=== PATIENT | male | born 1945 ===

== ENCOUNTER 2016-10-10 08:35 | Day surgery (SDC) | payer MEDICARE, BC ==
[2015-12-28 04:40] VITALS: PULSE 72
[2016-10-10 09:00] VITALS: BMI 22.8
[2016-10-10 09:43] LABS: BASO # 0.1 K/uL (0.0-0.2); BASO % 0.5 % (0.0-2.0); EOS # 0.1 K/uL (0.0-0.7); EOS % 0.6 % (0.0-4.0); HEMATOCRIT 43.8 % (35.0-51.0); LYMPH # 0.9 K/uL (1.0-4.3); LYMPH % 7.3 % (20.0-40.0); MEAN CELL VOLUME 85.4 fL (80.0-94.0); MEAN CORPUSCULAR HEMOGLOBIN 27.1 pg (27.0-31.0); MEAN CORPUSCULAR HGB CONC 31.7 g/dL (33.0-37.0); MEAN PLATELET VOLUME 11.4 fL (7.2-11.7); MONO # 0.8 K/uL (0.0-0.8); MONO % 7.1 % (0.0-10.0); WHITE BLOOD COUNT 11.7 K/uL (4.8-10.8)
[2016-10-10 09:44] LABS: POTASSIUM 4.3 mmol/L (3.6-5.2)
[2016-10-10 09:45] LABS: PLATELET COUNT 106 K/uL (130-400)
[2016-10-10 09:48] LABS: CALCIUM 9.2 mg/dl (8.6-10.4)
[2016-10-10 10:07] LABS: BASOPHIL 1 % (0-2); EOSINOPHIL 1 % (0-4); NEUTROPHIL 70 % (50-75); TOTAL CELLS COUNTED 100
[2016-10-10 10:09] LABS: LARGE PLATELETS PRESENT
[2016-10-10 10:42] VITALS: RESP 18
[2016-10-10] MEDS ORDERED: Lidocaine 2% Inj (20ml) ONE (11:43)
[2016-10-10] MEDS ORDERED: Iodixanol 320 MG/ML 200 ML BOTTLE IV ONE (11:43)
[2016-10-10] MEDS ORDERED: Midazolam 2 MG/2 ML VIAL ONE (11:54)
[2016-10-10] MEDS ORDERED: Propofol 10 mg/ml Inj (20 ML) ONE (12:51)
[2016-10-10] MEDS ORDERED: Nitroglycerin 50mg in D5W 250 ML IV ONE (12:52)
--- NOTE | 2016-10-10 13:27 | CARD ---
APPROVED REPORT EKG Measurement Heart [id number] <Conclusion> Sinus tachycardia Possible Left atrial enlargement Right bundle branch block Left posterior fascicular block Bifascicular block Inferior infarct, age undetermined Anteroseptal infarct, age undetermined Abnormal ECG
--- NOTE | 2016-10-10 13:33 | PCM.SURG1 ---
Surgeon's Initial Post Op Note - Surgeon's Notes Surgeon: blanka Shredding Machine Operator: 0 Type of Anesthesia: IV Sedation Anesthesia Administered By: mino Pre-Operative Diagnosis: pvd. rest pain right foot Operative Findings: 60% perianastomotic stenosis to dorsalis pedis on right. 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 balloon angioplasty of dorsalis pedis artery. pressure closure left groin Post-Operative Diagnosis: same Operation Performed: aotofrmoral angiogram via left groin with selective catherization of right femoral artery. balloon angioplasty 2x40 of dp/ gsv anastomosis Specimen/Specimens Removed: 0 Estimated Blood Loss: EBL {In ML}: 25 Blood Products Given: N/A Drains Used: No Drains Post-Op Condition: Good Date of Surgery/Procedure: 10/10/16 Time of Surgery/Procedure: 13:34
--- NOTE | 2016-10-10 14:09 | VAS ---
DATE: 10/10/2016 PREOPERATIVE DIAGNOSES: Rest pain right foot, previous right superficial femoral artery stent, previ ous right popliteal to dorsalis pedis bypass. SURGEON: Forrest Olvera MD BOILERMAKER MECHANIC: None. ANESTHESIOLOGIST: ANESTHESIA: Local with sedation. 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 Preoperative imaging demonstrated an easily palpable dorsalis pedis pulse from a previous dorsalis pedis bypass. However, the conditio n of the foot appears to be deteriorating. Because of this, an angiogram was recommended. 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 This remains unchanged in apparent size angiographically . Both renal arteries are patent. Both common external iliac and internal iliac arteries had diseas e, but no significant stenoses. Both common femoral arteries were widely patent with the superficial femoral arteries being patent on both sides and the profunda femoris arteries being patent. On the left side, we did not take further pictures below the knee because of a previous amputation. On the right side, the superficial femoral artery was widely patent including the area of previously placed stent down to the anastomosis to the dorsalis pedis artery. In the arden-anastomotic area, there appe ared to be a 60%-70% stenosis. Given the circumstances, I felt it was augustin to attempt to balloon thi s. The lesion was crossed, heparin was given, a sheath positioned in the proximal portion of the pop liteal artery and then selective cannulization of this had been carried out. Then, we ballooned this with a 2 mm balloon without any apparent change or indentation noted on the balloon. However, the s ubsequent pictures appeared improved with better flow to the foot and a lesser appearing degree of st enosis. The procedure was then terminated and pressure was applied to the groin. OPERATION CARRIED OUT: Aortofemoral angiogram with selective catheterization of right femoral artery via left groin, balloon angioplasty of the right greater saphenous vein, dorsalis pedis anastomosis using a 2 mm balloon. There was a pressure closure applied to the left groin. Forrest Olvera Jr., MD cc: [id number] TT: 10/10/2016 14:08:39 Confirmation # [id number] Dictation # [id number]
[2016-10-10 15:31] VITALS: BP 133/73; PULSE 92; TEMP 97.2; O2SAT 100
== END 2016-10-10 18:08 | disposition home or self-care (01) ==
LOC: C.SPRAD 08:35
PROVIDERS: ATTEND Surgery Vascular Surgery
DX: I73.9 Peripheral vascular disease, unspecified (principal); I70.221 Atherosclerosis of native arteries of extremities with rest pain, right leg; Z89.512 Acquired absence of left leg below knee
CPT/HCPCS: 36415; 37228; 75710; 80048; 82948; 85025; 85610; 85730; 93005; 94770; C1725; C1766; C1769; C1887; J1644; J2250; J2704; J3010; Q9966